=== PATIENT | female | born 1990 | race Caucasian/White ===

== ENCOUNTER 2016-07-04 13:17 | Emergency (ER) | payer BC, MEDICAID, SELFPAY ==
[~2016-07-04 13:17] MED LIST: DOCU10CA PO; IBUP-1114 PO; LABE20TAB PO; MOTR200T44 PO; PERC5TAB6 PO; PERCOCET PO; PRENTAB55 PO
[2016-07-04] MEDS ORDERED: ACETAMINOPHEN 325 MG TAB As Ordered ONE (14:44)
--- NOTE | 2016-07-04 15:09 | REP ---
Clinical: Pain and swelling . Technique: Rosa scale and color Doppler evaluation using linear high frequency transducer. Findings: Ultrasound examination of the left lower extremity deep venous structures from the common femoral vein to the popliteal vein demonstrates normal compressibility flow and wave patterns in response to respiration and augmentation. There is no evidence for deep venous thrombosis. Impression: No evidence for deep venous thrombosis. Signed by Luis A Teixeira MD 07/04/2016 03:01 P
--- NOTE | 2016-07-04 15:54 | EDDOCDS ---
Physician Documentation [facility] Name: Esmer Omer Age: 25 yrs Sex: Female : 1990 Arrival Date: 07/04/2016 Time: 13:17 Bed PR Private MD: Jane Disposition: 07/04/16 15:31 Discharged to Home/Self Care. Impression: Pain in left lower leg - negative DVT U/S today, Streptococcal pharyngitis. - Condition is Stable. - Discharge Instructions: Leg Cramps, Strep Throat, [id number]. - Prescriptions for Amoxicillin 875 mg Oral Tablet - take 1 tablet by ORAL route every 12 hours for 10 days; 20 tablet. Ibuprofen 800 mg Oral Tablet - take 1 tablet by ORAL route every 8 hours As needed take with food; 30 tablet. - Medication Reconciliation, Local Pharmacy Hours form. - Follow up: Jane; When: 1 - 2 days; Reason: Recheck today's complaints, Continuance of care. Follow up: Emergency Department; Reason: Worsening of conditions. - Problem is new. - Symptoms have improved. Historical: - Allergies: Macrobid (Hives); - Home Meds: 1. MVI daily daily - PMHx: Anemia; - PSHx: Emergency following ruptured placenta 03/09/14; breast implants; right knee surgery; - Social history: Smoking status: Patient states was never smoker of tobacco. No barriers to communication noted, The patient speaks fluent Romansh, Speaks appropriately for age. - Family history: Not pertinent. - : The pt / caregiver states he / she is not on anticoagulants. Home medication list is obtained from the patient. - Exposure Risk Screening:: None identified. 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 3 in. (160.02 cm) (R); 15:42 BP 158 / 89 RA Sitting (auto/reg); Pulse 88; Resp 18; Temp 99.1(O); Pulse Ox 99% on rs6 R/A; Pain 7/10; 13:18 Body Mass Index 27.10 (69.40 kg, 160.02 cm) dd6 MDM: 14:13 US Lower Extremity R/O DVT Ordered. EDMS 14:37 Acetaminophen Tablet 975 mg PO once ordered. ef1 14:37 Strep Screen, Nursing ordered. ef1 Administered Medications: 14:46 Drug: Acetaminophen 975 mg [acetaminophen 325 mg tablet (3 tabs)] Route: PO; mlb1 Signatures: Dispatcher MedHost EDMS Addison Hobbs RN RN Hamida Everett, PA-C PA-C ef1 Taylor Castaneda RN RN ms18 Anurag Pete RN mlb1 MTDD
--- NOTE | 2016-07-04 15:54 | EDDOCDS ---
Nurse's Notes [facility] Name: Esmer Omer Age: 25 yrs Sex: Female : 1990 Arrival Date: 07/04/2016 Time: 13:17 Bed PR Private MD: Jane Diagnosis: Pain in left lower leg-negative DVT U/S today;Streptococcal pharyngitis Presentation: 07/04 13:21 Presenting complaint: Patient states: calf pain in left leg x 1 week - getting worse bcj every day. today noticed pain in left calf. denies numbness tingleing in feet .no injury. Adult Sepsis Screening: The patient does not have new or worsening altered mentation. Patient's respiratory rate is less than 22. Systolic blood pressure is greater than 100. Patient has a qSOFA score of 0- Negative Sepsis Screen. Suicide/Homicide risk assessment- the patient denies having any suicidal and/or homicidal ideations and does not present with any other emotional, behavioral or mental health complaints. 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 Transition of care: patient was not received from another setting of care. 13:21 Acuity: JOSE Level 4 bcj 13:21 Method Of Arrival: Walkin/Carried/Asstd bcj Triage Assessment: 13:24 General: Appears in no apparent distress, comfortable, Smells of. Pain: Location: left bcj calf Pain. HIV screening NA for this visit Offered previously. 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 MVI daily daily - PMHx: Anemia; - PSHx: Emergency following ruptured placenta 03/09/14; breast implants; right knee surgery; - Social history: Smoking status: Patient states was never smoker of tobacco. No barriers to communication noted, The patient speaks fluent Syriac, Speaks appropriately for age. - Family history: Not pertinent. - : The pt / caregiver states he / she is not on anticoagulants. Home medication list is obtained from the patient. - Exposure Risk Screening:: None identified. Screenin:50 Screening information is obtained from the patient. Fall risk: No risks identified. ms18 Assistance ADL's: requires no assistance with activities of daily living. Abuse/DV Screen: The patient / caregiver reports he/she is: not in a situation that causes fear, pain or injury. Nutritional screening: No deficits noted. Advance Directives: There is no living will. home support is adequate. Assessment: 15:50 General: Appears in no apparent distress, comfortable, Behavior is appropriate for age, ms18 cooperative, pleasant. Pain: Location: left foot and left calf. Neurological: Level of Consciousness is awake, alert, obeys commands, Oriented to person, place, time. Respiratory: Airway is patent Respiratory effort is even, unlabored. Derm: Skin is pink, warm & dry. Swollen area noted on left foot. Vital Signs: 13:18 BP 159 / 98; Pulse 103; Resp 18 S; Temp 99.1(O); Pulse Ox 100% on R/A; Weight 69.4 kg dd6 (R); Height 5 ft. 3 in. (160.02 cm) (R); 15:42 BP 158 / 89 RA Sitting (auto/reg); Pulse 88; Resp 18; Temp 99.1(O); Pulse Ox 99% on rs6 R/A; Pain 7/10; 13:18 Body Mass Index 27.10 (69.40 kg, 160.02 cm) dd6 Vitals: 13:18 Log In Time: July 04, 2016 at 13:16. dd6 14:52 Strep Screen is obtained and tested: Positive. mlb1 ED Course: 13:18 Patient visited by Carloz Monroe PCA. dd6 13:18 [facility] Physician. dd6 13:18 Patient moved to Waiting dd6 13:19 Patient moved to Pre RCE dd6 13:22 Triage Initiated bcj 13:29 Patient visited by Addison Hobbs RN. bcj 14:22 Hamida Peralta PA-C is PHCP. ef1 14:22 Addis Bran MD is Attending Physician. ef1 14:24 Patient moved to Triage 3 ms18 14:25 Patient moved to Pre RCE ms18 14:31 Patient visited by Hamida Peralta PA-C. ef1 14:31 Patient moved to Triage 2 ms18 14:45 Patient moved to TR1 rs6 14:45 Patient moved to Ultrasound rs6 15:02 Patient moved to TR1 hgl 15:26 Patient visited by Hamida Peralta PA-C. ef1 15:31 Jane is Referral Physician. ef1 15:32 Patient moved to PR1 / 25 mlb1 15:42 Patient visited by Denisse Bryant PCA. rs6 15:50 Patient visited by Taylor Castaneda RN. ms18 15:50 The patient / caregiver is instructed regarding the plan of care and ED course. Patient ms18 has correct armband on for positive identification. Property sent home with patient. :Personal belongings accompany Pt. 15:50 No IV's were initiated during this patient's visit. No procedures done that require ms18 assistance. Administered Medications: 14:46 Drug: Acetaminophen 975 mg [acetaminophen 325 mg tablet (3 tabs)] Route: PO; mlb1 Order Results: There are currently no results for this order. Outcome: 15:31 Discharge ordered by Provider. ef1 15:50 Discharge Assessment: Patient awake, alert and oriented x 3. No cognitive and/or ms18 functional deficits noted. Patient verbalized understanding of disposition instructions. patient administered narcotics - no. The following High Risk Discharge criteria are identified: None. Discharged to home ambulatory. Condition: good Condition: stable Condition: improved. Discharge instructions given to patient, Instructed on discharge instructions, follow up and referral plans. medication usage, Demonstrated understanding of instructions, medications, Pt was receptive of discharge instructions/ teaching. Prescriptions given X 2. No special radiology studies were completed. 15:53 Patient left the ED. ms18 Signatures: Addison Hobbs RN RN Anurag Ko RN RN mlb1 Carloz Monroe, CUTTING INSPECTOR CUTTING INSPECTOR dd6 Hamida Peralta PA-C PA-C ef1 Ly, Dawson hgl Taylor Castaneda,JORDAN RN ms18 Denisse Bryant, ALEX CUTTING INSPECTOR rs6 MTDD
--- NOTE | 2016-07-06 16:54 | EDDOCDS ---
Physician Documentation [facility] Name: Esmer Omer Age: 25 yrs Sex: Female : 1990 Arrival Date: 07/04/2016 Time: 13:17 Bed PR Private MD: Jane Disposition: 07/04/16 15:31 Discharged to Home/Self Care. Impression: Pain in left lower leg - negative DVT U/S today, Streptococcal pharyngitis. - Condition is Stable. - Discharge Instructions: Leg Cramps, Strep Throat, [id number]. - Prescriptions for Amoxicillin 875 mg Oral Tablet - take 1 tablet by ORAL route every 12 hours for 10 days; 20 tablet. Ibuprofen 800 mg Oral Tablet - take 1 tablet by ORAL route every 8 hours As needed take with food; 30 tablet. - Medication Reconciliation, Local Pharmacy Hours form. - Follow up: Jane; When: 1 - 2 days; Reason: Recheck today's complaints, Continuance of care. Follow up: Emergency Department; Reason: Worsening of conditions. - Problem is new. - Symptoms have improved. Historical: - Allergies: Macrobid (Hives); - Home Meds: 1. MVI daily daily - PMHx: Anemia; - PSHx: Emergency following ruptured placenta 03/09/14; breast implants; right knee surgery; - Social history: Smoking status: Patient states was never smoker of tobacco. No barriers to communication noted, The patient speaks fluent Pashto, Speaks appropriately for age. - Family history: Not pertinent. - : The pt / caregiver states he / she is not on anticoagulants. Home medication list is obtained from the patient. - Exposure Risk Screening:: None identified. 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 3 in. (160.02 cm) (R); 15:42 BP 158 / 89 RA Sitting (auto/reg); Pulse 88; Resp 18; Temp 99.1(O); Pulse Ox 99% on rs6 R/A; Pain 7/10; 13:18 Body Mass Index 27.10 (69.40 kg, 160.02 cm) dd6 MDM: 14:13 US Lower Extremity R/O DVT Ordered. EDMS 14:37 Acetaminophen Tablet 975 mg PO once ordered. ef1 14:37 Strep Screen, Nursing ordered. ef1 20:52 T-Sheet-- Draft Copy was scanned into Hashable and attached to record. klr Administered Medications: 14:46 Drug: Acetaminophen 975 mg [acetaminophen 325 mg tablet (3 tabs)] Route: PO; mlb1 Signatures: Dispatcher MedHost EDMS Addison Hobbs RN RN bcj Hamida Peralta, PA-C PA-C ef1 Taylor Castaneda RN RN ms18 Salima Bobby Michael B RN mlb1 The chart was reviewed and I authenticate all verbal orders and agree with the evaluation and treatment provided.Attachments: 20:52 T-Sheet-- Draft Copy klr Chart Complete MTDD
--- NOTE | 2016-07-06 16:54 | EDDOCDS ---
Physician Documentation [facility] Name: Esmer Omer Age: 25 yrs Sex: Female : 1990 Arrival Date: 07/04/2016 Time: 13:17 Bed PR Private MD: Jane Disposition: 07/04/16 15:31 Discharged to Home/Self Care. Impression: Pain in left lower leg - negative DVT U/S today, Streptococcal pharyngitis. - Condition is Stable. - Discharge Instructions: Leg Cramps, Strep Throat, [id number]. - Prescriptions for Amoxicillin 875 mg Oral Tablet - take 1 tablet by ORAL route every 12 hours for 10 days; 20 tablet. Ibuprofen 800 mg Oral Tablet - take 1 tablet by ORAL route every 8 hours As needed take with food; 30 tablet. - Medication Reconciliation, Local Pharmacy Hours form. - Follow up: Jane; When: 1 - 2 days; Reason: Recheck today's complaints, Continuance of care. Follow up: Emergency Department; Reason: Worsening of conditions. - Problem is new. - Symptoms have improved. Historical: - Allergies: Macrobid (Hives); - Home Meds: 1. MVI daily daily - PMHx: Anemia; - PSHx: Emergency following ruptured placenta 03/09/14; breast implants; right knee surgery; - Social history: Smoking status: Patient states was never smoker of tobacco. No barriers to communication noted, The patient speaks fluent Malay, Speaks appropriately for age. - Family history: Not pertinent. - : The pt / caregiver states he / she is not on anticoagulants. Home medication list is obtained from the patient. - Exposure Risk Screening:: None identified. 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 3 in. (160.02 cm) (R); 15:42 BP 158 / 89 RA Sitting (auto/reg); Pulse 88; Resp 18; Temp 99.1(O); Pulse Ox 99% on rs6 R/A; Pain 7/10; 13:18 Body Mass Index 27.10 (69.40 kg, 160.02 cm) dd6 MDM: 14:13 US Lower Extremity R/O DVT Ordered. EDMS 14:37 Acetaminophen Tablet 975 mg PO once ordered. ef1 14:37 Strep Screen, Nursing ordered. ef1 20:52 T-Sheet-- Draft Copy was scanned into [employer] and attached to record. klr Administered Medications: 14:46 Drug: Acetaminophen 975 mg [acetaminophen 325 mg tablet (3 tabs)] Route: PO; mlb1 Signatures: Dispatcher MedHost EDMS Addison Hobbs RN RN bcj Hamida Peralta, PA-C PA-C ef1 Taylor Castaneda RN RN ms18 Salima Bobby Michael B RN mlb1 The chart was reviewed and I authenticate all verbal orders and agree with the evaluation and treatment provided.Attachments: 20:52 T-Sheet-- Draft Copy klr Chart Complete MTDD
--- NOTE | 2016-07-06 16:54 | EDDOCDS ---
Nurse's Notes [facility] Name: Esmer Omer Age: 25 yrs Sex: Female : 1990 Arrival Date: 07/04/2016 Time: 13:17 Bed PR Private MD: Jane Diagnosis: Pain in left lower leg-negative DVT U/S today;Streptococcal pharyngitis Presentation: 07/04 13:21 Presenting complaint: Patient states: calf pain in left leg x 1 week - getting worse bcj every day. today noticed pain in left calf. denies numbness tingleing in feet .no injury. Adult Sepsis Screening: The patient does not have new or worsening altered mentation. Patient's respiratory rate is less than 22. Systolic blood pressure is greater than 100. Patient has a qSOFA score of 0- Negative Sepsis Screen. Suicide/Homicide risk assessment- the patient denies having any suicidal and/or homicidal ideations and does not present with any other emotional, behavioral or mental health complaints. 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 Transition of care: patient was not received from another setting of care. 13:21 Acuity: JOSE Level 4 bcj 13:21 Method Of Arrival: Walkin/Carried/Asstd bcj Triage Assessment: 13:24 General: Appears in no apparent distress, comfortable, Smells of. Pain: Location: left bcj calf Pain. HIV screening NA for this visit Offered previously. 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 MVI daily daily - PMHx: Anemia; - PSHx: Emergency following ruptured placenta 03/09/14; breast implants; right knee surgery; - Social history: Smoking status: Patient states was never smoker of tobacco. No barriers to communication noted, The patient speaks fluent Albanian, Speaks appropriately for age. - Family history: Not pertinent. - : The pt / caregiver states he / she is not on anticoagulants. Home medication list is obtained from the patient. - Exposure Risk Screening:: None identified. Screenin:50 Screening information is obtained from the patient. Fall risk: No risks identified. ms18 Assistance ADL's: requires no assistance with activities of daily living. Abuse/DV Screen: The patient / caregiver reports he/she is: not in a situation that causes fear, pain or injury. Nutritional screening: No deficits noted. Advance Directives: There is no living will. home support is adequate. Assessment: 15:50 General: Appears in no apparent distress, comfortable, Behavior is appropriate for age, ms18 cooperative, pleasant. Pain: Location: left foot and left calf. Neurological: Level of Consciousness is awake, alert, obeys commands, Oriented to person, place, time. Respiratory: Airway is patent Respiratory effort is even, unlabored. Derm: Skin is pink, warm & dry. Swollen area noted on left foot. Vital Signs: 13:18 BP 159 / 98; Pulse 103; Resp 18 S; Temp 99.1(O); Pulse Ox 100% on R/A; Weight 69.4 kg dd6 (R); Height 5 ft. 3 in. (160.02 cm) (R); 15:42 BP 158 / 89 RA Sitting (auto/reg); Pulse 88; Resp 18; Temp 99.1(O); Pulse Ox 99% on rs6 R/A; Pain 7/10; 13:18 Body Mass Index 27.10 (69.40 kg, 160.02 cm) dd6 Vitals: 13:18 Log In Time: July 04, 2016 at 13:16. dd6 14:52 Strep Screen is obtained and tested: Positive. mlb1 ED Course: 13:18 Patient visited by Carloz Monroe PCA. dd6 13:18 [facility] Phys[facility]. dd6 13:18 Patient moved to Waiting dd6 13:19 Patient moved to Pre RCE dd6 13:22 Triage Initiated bcj 13:29 Patient visited by Addison Hobbs RN. bcj 14:22 Hamida Peralta PA-C is PHCP. ef1 14:22 Addis Bran MD is Attending Physician. ef1 14:24 Patient moved to Triage 3 ms18 14:25 Patient moved to Pre RCE ms18 14:31 Patient visited by Hamida Peralta PA-C. ef1 14:31 Patient moved to Triage 2 ms18 14:45 Patient moved to TR1 rs6 14:45 Patient moved to Ultrasound rs6 15:02 Patient moved to TR1 hgl 15:26 Patient visited by Hamida Peralta PA-C. ef1 15:31 Jane is Referral Physician. ef1 15:32 Patient moved to PR1 / 25 mlb1 15:42 Patient visited by Denisse Bryant PCA. rs6 15:50 Patient visited by Taylor Castaneda RN. ms18 15:50 The patient / caregiver is instructed regarding the plan of care and ED course. Patient ms18 has correct armband on for positive identification. Property sent home with patient. :Personal belongings accompany Pt. 15:50 No IV's were initiated during this patient's visit. No procedures done that require ms18 assistance. 15:53 US Lower Extremity R/O DVT Returned. EDMS 20:52 T-Sheet-- Draft Copy was scanned into Maktoob and attached to record. klr Administered Medications: 14:46 Drug: Acetaminophen 975 mg [acetaminophen 325 mg tablet (3 tabs)] Route: PO; mlb1 Order Results: Radiology Order: US Lower Extremity R/O DVT Test: US Lower Extremity R/O DVT REASON FOR EXAMINATION: pain; Clinical: Pain and swelling .; ; Technique: Rosa scale and color Doppler evaluation using linear high frequency; transducer.; ; Findings:; Ultrasound examination of the left lower extremity deep venous structures from; the common femoral vein to the popliteal vein demonstrates normal compressibility; flow and wave patterns in response to respiration and augmentation. There is no; evidence for deep venous thrombosis.; ; Impression:; No evidence for deep venous thrombosis.; ; ; Signed by; Luis A Teixeira MD 07/04/2016 03:01 P; Outcome: 15:31 Discharge ordered by Provider. ef1 15:50 Discharge Assessment: Patient awake, alert and oriented x 3. No cognitive and/or ms18 functional deficits noted. Patient verbalized understanding of disposition instructions. patient administered narcotics - no. The following High Risk Discharge criteria are identified: None. Discharged to home ambulatory. Condition: good Condition: stable Condition: improved. Discharge instructions given to patient, Instructed on discharge instructions, follow up and referral plans. medication usage, Demonstrated understanding of instructions, medications, Pt was receptive of discharge instructions/ teaching. Prescriptions given X 2. No special radiology studies were completed. 15:53 Patient left the ED. ms18 Signatures: Dispatcher iPointer Addison Browning RN RN bcj Anurag Pete RN RN mlb1 Carloz Monroe, PRODUCTION ZONE LEADER PRODUCTION ZONE LEADER dd6 Hamida Peralta, PA-C PA-C ef1 Estela, Taylor Guadarrama,RN RN ms18 Manny, Denisse, PRODUCTION ZONE LEADER PRODUCTION ZONE LEADER rs6 Salima Bobby Chart Complete MTDD
== END 2016-07-04 15:53 | disposition home or self-care (01) ==
LOC: M ED 13:17
DX: J02.0 Streptococcal pharyngitis (principal); M79.605 Pain in left leg; D64.9 Anemia, unspecified; Z98.82 Breast implant status; Z79.899 Other long term (current) drug therapy; Z88.8 Allergy status to other drugs, medicaments and biological substances